=== PATIENT | female | born 1945 | race Caucasian/White ===

== ENCOUNTER → 2019-07-19 | Outpatient (CLI) | payer MEDICARE ==
[~2019-07-19] MED LIST: ALBUTEROL SULFATE 0.083% 2.5 MG/3 ML INH IH ONE; AMOX875T2 PO; ASPI-1197 PO; CALC-1038 PO; MULT-1203 PO; OSEL75 PO; PRAV40TA3 PO; [UNRECOGNIZED DRUG - CODE] PO
== END | disposition home or self-care (01) ==
LOC: RESP 12:41
PROVIDERS: ATTEND Internal Medicine
DX: J44.9 Chronic obstructive pulmonary disease, unspecified (principal)
CPT/HCPCS: 94060; 94727; 94729

== ENCOUNTER 2025-07-01 09:44 | Emergency (ER) | payer MEDICARE ==
[~2025-07-01] VITALS: Ht 152.4 cm; Wt 55.3 kg
[~2025-07-01 09:44] MED LIST changes: -ALBUTEROL SULFATE 0.083% 2.5 MG/3 ML INH IH ONE; -PRAV40TA3 PO; +PRAV40TA62 PO
[2025-07-01 10:11] LABS: RAPID GROUP A STREP negative (NEGATIVE)
[2025-07-01 10:24] LABS: COVID19 (SARS ANTIGEN RAPID) PRESUMPTIVE NEGATIVE (NEGATIVE); INFLUENZA TYPE A Negative For Type A (NEGATIVE); INFLUENZA TYPE B Negative For Type B (NEGATIVE)
[2025-07-01 10:44] LABS: IMMATURE GRANULOCYTE ABSOLUTE 0.04 K/uL (0-1); NUCLEATED RED BLOOD CELLS 0.0 % (0.0-0.19); PLATELET COUNT (AUTO) 180 K/uL (130-400); RED BLOOD CELL COUNT(AUTO) 4.43 MIL/uL (4.00-5.50); RED CELL DISTRIBUTION WIDTH 14.5 % (11.0-15.5); WHITE BLOOD COUNT (AUTO) 8.2 K/uL (4.8-10.8)
[2025-07-01] MEDS: 0.9%NACL 1000ML 1,000 ML IV ONE (10:44)
[2025-07-01 10:55] VITALS: BP 156/76; PULSE 100; RESP 16; TEMP 99.9; O2SAT 98
--- NOTE | 2025-07-01 11:23 | HMCIMG ---
EXAM: CR Chest, 1 View. CLINICAL HISTORY: fever COMPARISON: None provided. FINDINGS: LUNGS: There is no mass, infiltrate, or acute pulmonary abnormality. PLEURAL SPACES: No evidence of pleural effusion or pneumothorax. MEDIASTINUM: The cardiomediastinal silhouette is within normal limits. BONES: No acute osseous abnormality. IMPRESSION: No acute cardiopulmonary pathology is evident. /[place]
[2025-07-01 11:27] LABS: CREATININE 0.7 mg/dL (0.5-1.0); GLOMERULAR FILTR. RATE CALC 87.0 mL/min (>90); GLUCOSE,RANDOM 91.0 mg/dL (70-105); SODIUM SERUM 139.0 mmol/L (136-145); UREA NITROGEN, BLOOD 13.0 mg/dL (7-18)
[2025-07-01 11:31] LABS: ASPARTATE AMINOTRANSFERASE 23.0 U/L (10-37); CREATINE KINASE, TOTAL 60.0 U/L (21-232); TOTAL PROTEIN, SERUM 7.5 g/dL (6.0-8.3)
[2025-07-01 11:48] LABS: APPEARANCE,URINE CLEAR (CLEAR); GLUCOSE, URINE (UA) NEGATIVE (NEGATIVE); LEUKOCYTE ESTERASE ,URINE NEGATIVE Leu/uL (NEGATIVE); NITRATE,URINE NEGATIVE (NEGATIVE); OCCULT BLOOD,URINE NEGATIVE (NEGATIVE)
[2025-07-01 11:49] LABS: ADD UA MICROSCOPIC YES
[2025-07-01 11:51] LABS: SQUAMOUS EPITHELIAL CELL,UR RARE /HPF (0-2)
[2025-07-01] MEDS ORDERED: PRED20TA3 PO (12:27)
[2025-07-01] MEDS ORDERED: AZIT250T9 PO (12:27)
--- NOTE | 2025-07-01 12:27 | ERN ---
ED Note History of Present Illness Stated Complaint: BODY ACHE, SORE THROAT, COUGH Chief Complaint: Flu Symptoms Time Seen by MD: 10:07 Dictation: [age] Year old female with body aches sore throat cough cold congestion and fever recent cruise. Patient denies any chest pain or shortness a breath no hemoptysis no pain with urination Allergies: Coded Allergies: codeine (Unverified Allergy, Unknown, 02/05/15) SEVERE NAUSEA /VOMITING DIZZINESS morphine (Unverified Allergy, Unknown, 02/05/15) SECVERE NAUSE /VOMITING , DIZZINESS Home Meds Reported Medications Oseltamivir Phosphate (Tamiflu) 75 Mg Cap, 75 MG PO BID, CAP 02/05/15 Amoxicillin (Amoxicillin) 875 Mg Tablet, 875 MG PO PM, TAB 02/05/15 Pravastatin Sodium (Pravastatin Sodium) 40 Mg Tablet, 40 MG PO AM, TAB 02/05/15 Aspirin (Aspirin) 81 Mg Tab.chew, 81 MG PO AD, TAB.CHEW 02/05/15 Ascorbic Acid (Vitamin C) 1,000 Mg Tab.chew, 1000 MG PO AD, TAB.CHEW 02/05/15 Calcium Carbonate (Calcium) 500 Mg Tablet, 500 MG PO BID, TAB 02/05/15 Multivitamin (Multi Vitamin Daily) 1 Each Tablet, 1 EACH PO AD, TAB 02/05/15 Past Medical History Past Medical History: Hypertension Surgical History: BTL Surgical History Other: THYROIDECTOMY, ABD LAP. Review of System Dictation Constitutional: Per HPI Eyes: Negative for injury, pain,redness, and discharge ENT: Per HPI Cardiovascular: Negative for chest pain, palpitations, and edema Respiratory: Per Hpi Abdomen/GI: Negative for abdominal pain, nausea, vomiting, diarrhea, and constipation Back: Negative for injury and pain : Negative for injury, bleeding and discharge MS/Extremity: Negative for injury and deformity Skin: Negative for rash, and discoloration Neuro: Negative for headache, weakness, numbness, tingling, and seizure Psych: Negative for suicide ideation, homicidal ideation, and hallucinations Initial Vital Sign VS Vital Signs Date Time Temp Pulse Resp B/P (MAP) Pulse Ox O2 Delivery O2 Flow Rate FiO2 07/01/25 09:51 100.4 105 18 147/84 98 0 07/01/25 10:55 Room Air* 21 Physical Exam Dictation General: awake, alert, NAD, nontoxic febrile Head/Face: Normocephalic, atraumatic Eyes: PERRL, EOMI, vision at baseline ENT: oral cavity clear, TMs clear, no signs of infection Neck: Trachea midline, supple, no nuchal rigidity Cardiovascular: RRR, normal S1/S2, No MRGs, no JVD Respiratory: CTAB, no respiratory distress, No rales or wheezes Abdomen: Soft, non-tender, non-distended, normal bowel sounds, no guarding or rebound. Skin: Warm, dry, normal turgor, no rash MS/Extremity: Pulses equal, no cyanosis, neurovascular intact, FROM Neuro: COAx4, GCS 15, strength 5/5, CN 2-12 intact, normal cerebellar exam, normal gait, Psych: Normal behavior, mood, and affect normal Results (Laboratory/Radiology) Laboratory/Radiology Laboratory Tests Test 07/01/25 09:50 07/01/25 10:33 07/01/25 11:25 Influenza Type A Antigen Negative For Type A Influenza Type B Antigen Negative For Type B SARS-CoV-2 Antigen (Rapid) PRESUMPTIVE NEGATIVE Group A Streptococcus Rapid negative (NEGATIVE) White Blood Count 8.2 K/uL (4.8-10.8) Red Blood Count 4.43 MIL/uL (4.00-5.50) Hemoglobin 14.0 g/dL (12.0-16.0) Hematocrit 42.4 % (36-48) Mean Corpuscular Volume 95.7 fL (79-99) Mean Corpuscular Hemoglobin 31.6 pg (27.0-33.0) Mean Corpuscular Hemoglobin Concent 33.0 g/dL (32.0-36.0) Red Cell Distribution Width 14.5 % (11.0-15.5) Platelet Count 180 K/uL (130-400) Mean Platelet Volume 11.5 fL (7.5-10.5) H Immature Granulocyte % (Auto) 0.5 % (0-1) Neutrophils (%) (Auto) 82.4 % (40.0-77.0) H Lymphocytes (%) (Auto) 7.1 % (21.0-51.0) L Monocytes (%) (Auto) 8.5 % (3.0-13.0) Eosinophils (%) (Auto) 1.0 % (0.0-8.0) Basophils (%) (Auto) 0.5 % (0.0-5.0) Neutrophils # (Auto) 6.8 K/uL (1.8-7.7) Lymphocytes # (Auto) 0.6 K/uL (1.0-4.8) L Monocytes # (Auto) 0.7 K/uL (0.1-1.0) Eosinophils # (Auto) 0.08 K/uL (0.00-0.70) Basophils # (Auto) 0.04 K/uL (0.00-0.20) Absolute Immature Granulocyte (auto 0.04 K/uL (0-1) Nucleated Red Blood Cells 0.0 % (0.0-0.19) White Cell Morphology Comment See comments Sodium Level 139 mmol/L (136-145) Potassium Level 4.2 mmol/L (3.5-5.1) Chloride Level 101 mmol/L (101-111) Carbon Dioxide Level 30 mmol/L (21-32) Blood Urea Nitrogen 13 mg/dL (7-18) Creatinine 0.7 mg/dL (0.5-1.0) Glomerular Filtration Rate Calc 87 mL/min (>90) Random Glucose 91 mg/dL (70-105) Lactic Acid Level 1.2 mmol/L (0.8-2.5) Total Calcium 9.4 mg/dL (8.5-10.1) Total Bilirubin 0.6 mg/dL (0.2-1.0) Direct Bilirubin 0.2 mg/dL (0.0-0.3) Aspartate Amino Transf (AST/SGOT) 23 U/L (10-37) Alanine Aminotransferase (ALT/SGPT) 31 U/L (12-78) Alkaline Phosphatase 61 U/L (50-136) Total Creatine Kinase 60 U/L (21-232) Troponin I High Sensitivity 5 ng/L (4-50) Total Protein 7.5 g/dL (6.0-8.3) Albumin 4.0 g/dL (3.5-5.0) Urine Color STRAW (YELLOW) Urine Appearance CLEAR (CLEAR) Urine pH 7.5 (5.0-8.0) Urine Specific [place] 1.011 (1.001-1.031) Urine Protein NEGATIVE mg/dL (NEGATIVE) Urine Glucose (UA) NEGATIVE mg/dL (NEGATIVE) Urine Ketones 5 mg/dL (NEGATIVE) H Urine Occult Blood NEGATIVE (NEGATIVE) Urine Nitrate NEGATIVE (NEGATIVE) Urine Bilirubin NEGATIVE mg/dL (NEGATIVE) Urine Urobilinogen 0.2 mg/dL (0.2-1.0) Urine Leukocyte Esterase NEGATIVE Areli/uL Urine RBC 0-1 /HPF (0-1) Urine WBC 0-1 /HPF (0-1) Urine Squamous Epithelial Cells RARE /HPF (0-2) Urine Bacteria RARE /HPF (None Seen) Labs Reviewed?: Yes EKG Comment: Heart rate 100, sinus tachycardia normal intervals no STEMI ED Course ED Course Orders Procedure Category Date Status Time Covid19 (Sars Antigen LAB 07/01/25 Complete Rapid) 09:50 Influenza Type A & B, LAB 07/01/25 Complete Rapid 09:50 Rapid (Group A Strep) LAB 07/01/25 Complete 09:50 12 Lead Ekg Tracing- EKG 07/01/25 Logged Technical 10:16 Basic Metabolic Panel LAB 07/01/25 Complete 10:16 Blood Cult BIANCA 07/01/25 In Process 10:16 Cbc With Differential LAB 07/01/25 Complete 10:16 Hepatic Function Panel LAB 07/01/25 Complete 10:16 Creatine Kinase, Total LAB 07/01/25 Complete 10:16 Lactic Acid LAB 07/01/25 Complete 10:16 Troponin I High LAB 07/01/25 Complete Sensitivity 10:16 Urinalysis Profile LAB 07/01/25 Complete 10:16 Chest 1vw RAD 07/01/25 Resulted 10:16 Ceftriaxone 2gm Vial PHA 07/01/25 Complete (Rocephin 2gm Inj) 10:16 0.9%Nacl 1000ml (Ns PHA 07/01/25 Complete 1000ml) 10:30 Current Medications Medications (Trade) Dose Ordered Sig/Jenna Route PRN Reason Start Time Stop Time Status Last Admin Dose Admin Ceftriaxone Sodium (Rocephin 2gm Inj) 2 gm ONCE STAT IVPB 07/01/25 10:16 07/01/25 10:20 DC 07/01/25 10:42 Sodium Chloride 1,000 ml @ 0 mls/hr ONCE ONCE IV 07/01/25 10:30 07/01/25 10:31 DC 07/01/25 10:44 Vital Signs Date Time Temp Pulse Resp B/P (MAP) Pulse Ox O2 Delivery O2 Flow Rate FiO2 07/01/25 10:55 99.9 100 16 156/76 98 Room Air* 0 21 07/01/25 09:51 100.4 105 18 147/84 98 0 Medical Decision Making MDM MDM: Differential diagnosis: Rationale: Tests considered and ordered secondary to shared decision making include: Previous outside records reviewed: Old ER visits. Risk of complication and/or morbidity or mortality of patient management: None Medications-Per medication reconciliation Need for hospitalization: Patient does not meet criteria for hospitalization. Need for emergency major/minor surgery: No There are no social concerns with this patient. Prescription drug management Prescriptions will include symptomatic care Patient's prior external medical records from other ER visits were reviewed by me as indicated. Prior testing and results from previous visits were reviewed. Prior tests were taken into account with medical decision making and resource utilization, independent historian/historians were used to obtain complete medical history. I independently interpreted the test that were performed, results were reviewed by me and considered findings on radiology if ordered. Medical management and examination interpretation discussions were had by me with other qualified healthcare professionals as indicated for the patient's care. 80-year-old with fever no focal signs of bacterial infection, patient wants to go home no white count clear lactic acid clear chest x-ray and urine offered admission for observation but reports that she does not want to stay in hospital prescriptions given advised to return if worse in any way or if blood cultures are positive she will be contacted. DX & DISP Disposition: Inpatient Departure Impression: Primary Impression: Fever Additional Impression: Acute URI Condition: Stable Scripts Prednisone (Prednisone) 20 Mg Tablet 20 MG PO DAILY for 5 Days, #5 TAB Prov: JACOB HENRY MD 07/01/25 Azithromycin (Azithromycin) 250 Mg Tablet 250 MG PO AD for cough for 5 Days, #6 TAB Prov: JACOB HENRY MD 07/01/25 Referrals: LEA CHIU MD (PCP) JACOB HENRY MD Jul 01, 2025 12:27
--- NOTE | 2025-07-01 16:43 | EKG ---
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
== END 2025-07-01 12:37 | disposition home or self-care (01) ==
LOC: EDH 09:44
DX: R50.9 Fever, unspecified (principal); J06.9 Acute upper respiratory infection, unspecified; I10 Essential (primary) hypertension; Z88.5 Allergy status to narcotic agent; Z90.89 Acquired absence of other organs; Z98.51 Tubal ligation status; Z20.822 Contact with and (suspected) exposure to COVID-19
CPT/HCPCS: 99285; 96365; 71045; 96366; 87426; 82550; 80076; 84484; 80048; 85025; 87040 ×2; 87880; 87804 ×2; 83605; 81001; 36415; 93005; J7030; J0696

== ENCOUNTER 2025-10-10 11:01 | Emergency (ER) | payer MEDICARE ==
[~2025-10-10] VITALS: Ht 154.9 cm; Wt 56.2 kg
[~2025-10-10 11:01] MED LIST changes: +AZIT250T9 PO; +PRED20TA3 PO
[2025-10-10 11:45] LABS: RAPID GROUP A STREP negative (NEGATIVE)
--- NOTE | 2025-10-10 11:47 | HMCIMG ---
EXAM: CR Chest, 1 View. CLINICAL HISTORY: Shortness of breath COMPARISON: CR - CHEST 1VW - 07/01/25 10:36 EDT FINDINGS: LUNGS: The lungs show no infiltrate or other acute finding. PLEURAL SPACES: No evidence of pleural effusion or pneumothorax. MEDIASTINUM: Cardiac size and mediastinal contours within normal limits. BONES: No aggressive appearing osseous lesion seen. IMPRESSION: No acute cardiopulmonary pathology is evident. /[place]
[2025-10-10 11:55] LABS: INFLUENZA TYPE A Negative For Type A (NEGATIVE); INFLUENZA TYPE B Negative For Type B (NEGATIVE); SARS-CoV-2, RNA, NAAT NEGATIVE SARS CoV-2 (NEGATIVE)
[2025-10-10] MEDS ORDERED: AMOX1TAB16 PO (12:51)
[2025-10-10] MEDS ORDERED: PRED10TA23 PO (12:51)
--- NOTE | 2025-10-10 12:52 | ERN ---
General Chief Complaint: Cough Stated Complaint: COUGH Time Seen by MD: 11:09 History of Present Illness Initial Comments 80-year-old female came in for cough. Patient has a voices no concerns. Allergies: Coded Allergies: codeine (Unverified Allergy, Unknown, 02/05/15) SEVERE NAUSEA /VOMITING DIZZINESS morphine (Unverified Allergy, Unknown, 02/05/15) SECVERE NAUSE /VOMITING , DIZZINESS Home Meds Active Scripts Prednisone (Prednisone) 20 Mg Tablet, 20 MG PO DAILY for 5 Days, #5 TAB Prov:JACOB HENRY MD 07/01/25 Azithromycin (Azithromycin) 250 Mg Tablet, 250 MG PO AD for cough for 5 Days, #6 TAB Prov:JACOB HENRY MD 07/01/25 Reported Medications Oseltamivir Phosphate (Tamiflu) 75 Mg Cap, 75 MG PO BID, CAP 02/05/15 Amoxicillin (Amoxicillin) 875 Mg Tablet, 875 MG PO PM, TAB 02/05/15 Pravastatin Sodium (Pravastatin Sodium) 40 Mg Tablet, 40 MG PO AM, TAB 02/05/15 Aspirin (Aspirin) 81 Mg Tab.chew, 81 MG PO AD, TAB.CHEW 02/05/15 Ascorbic Acid (Vitamin C) 1,000 Mg Tab.chew, 1000 MG PO AD, TAB.CHEW 02/05/15 Calcium Carbonate (Calcium) 500 Mg Tablet, 500 MG PO BID, TAB 02/05/15 Multivitamin (Multi Vitamin Daily) 1 Each Tablet, 1 EACH PO AD, TAB 02/05/15 Past Medical History Past Medical History: Hypertension Past Surgical History: Other Surgical History Other: ABD SX ROS Dictation Cough Physical Exam General Appearance: (+) no apparent distress, (+) apparent distress Orientation: (+) alert, (+) oriented x 3 Neck: (+) normal inspection, (+) supple Respiratory: (+) chest non-tender, (+) lungs clear Heart: (+) regular, (+) no gallop Gastrointestinal: (+) soft, (+) non-tender, (+) no organomegaly, (+) bowel sound present Results Laboratory and Microbiology Lab and Micro Result Laboratory Tests Test 10/10/25 11:00 Influenza Type A Antigen Negative For Type A Influenza Type B Antigen Negative For Type B SARS-CoV-2, RNA, NAAT NEGATIVE SARS CoV-2 Group A Streptococcus Rapid negative (NEGATIVE) MDM MDM: Differential diagnosis: Rationale: Tests considered and ordered secondary to shared decision making include: Previous outside records reviewed: Old ER visits. Risk of complication and/or morbidity or mortality of patient management: None Medications-Per medication reconciliation Need for hospitalization: Patient does not meet criteria for hospitalization. Need for emergency major/minor surgery: No There are no social concerns with this patient. Prescription drug management Prescriptions will include symptomatic care Patient's prior external medical records from other ER visits were reviewed by me as indicated. Prior testing and results from previous visits were reviewed. Prior tests were taken into account with medical decision making and resource utilization, independent historian/historians were used to obtain complete medical history. I independently interpreted the test that were performed, results were reviewed by me and considered findings on radiology if ordered. Medical management and examination interpretation discussions were had by me with other qualified healthcare professionals as indicated for the patient's care. ED Course Orders Procedure Category Date Status Time Covid Rna Naat LAB 10/10/25 Complete 11:07 Influenza Type A & B, LAB 10/10/25 Complete Rapid 11:07 Rapid (Group A Strep) LAB 10/10/25 Complete 11:07 Chest 1vw RAD 10/10/25 Resulted 11:09 Cbc With Differential LAB 10/10/25 Logged 12:36 Basic Metabolic Panel LAB 10/10/25 Logged 12:36 Troponin I High LAB 10/10/25 Logged Sensitivity 12:36 Ceftriaxone 1g Vial PHA 10/10/25 Verified (Rocephine 1g Inj) 13:00 Dexamethasone 4mg/Ml PHA 10/10/25 Verified 1ml Vial (Dexametha 13:00 Vital Signs Date Time Temp Pulse Resp B/P (MAP) Pulse Ox O2 Delivery O2 Flow Rate FiO2 10/10/25 11:02 98.4 95 18 162/87 98 Room Air 0 DX & DISP Disposition: Discharge Departure Impression: Primary Impression: Acute URI Condition: Stable Scripts Prednisone (Prednisone) 10 Mg Tab.ds.pk 10 MG PO BID for 5 Days, #10 Prov: JERRY HOWE MD 10/10/25 Amoxicillin/Potassium Clav (Amox Tr-K Clv 875-125 mg Tab) 875 Mg-125 Mg Tablet 1 EACH PO BID for 10 Days, #20 TAB 0 Refills Prov: JERRY HOWE MD 12/24/25 Referrals: LEA CHIU MD (PCP) JERRY HOWE MD Oct 10, 2025 12:52
[2025-10-10 12:54] LABS: IMMATURE GRANULOCYTE ABSOLUTE 0.03 K/uL (0-1); NUCLEATED RED BLOOD CELLS 0.0 % (0.0-0.19); PLATELET COUNT (AUTO) 189 K/uL (130-400); RED BLOOD CELL COUNT(AUTO) 4.46 MIL/uL (4.00-5.50); RED CELL DISTRIBUTION WIDTH 14.1 % (11.0-15.5); WHITE BLOOD COUNT (AUTO) 7.3 K/uL (4.8-10.8)
[2025-10-10 12:58] LABS: CREATININE 0.7 mg/dL (0.5-1.0); GLOMERULAR FILTR. RATE CALC 87.0 mL/min (>90); GLUCOSE,RANDOM 89.0 mg/dL (70-105); SODIUM SERUM 140.0 mmol/L (136-145); UREA NITROGEN, BLOOD 13.0 mg/dL (7-18)
[2025-10-10 13:03] VITALS: BP 154/79; PULSE 85; RESP 18; TEMP 98.4; O2SAT 98
== END 2025-10-10 13:13 | disposition home or self-care (01) ==
LOC: EDH 11:01
DX: J06.9 Acute upper respiratory infection, unspecified (principal); I10 Essential (primary) hypertension; Z88.5 Allergy status to narcotic agent; Z79.52 Long term (current) use of systemic steroids; Z79.899 Other long term (current) drug therapy; Z20.822 Contact with and (suspected) exposure to COVID-19
CPT/HCPCS: 99284; 71045; 87635; 84484; 80048; 85025; 87880; 87804 ×2; 36415; 96372 ×2; J1100; J0696